=== PATIENT | female | born 1980 ===

== ENCOUNTER 2021-12-04 02:28 | Inpatient (IN) | payer SELFPAY ==
[2021-12-04] MEDS ORDERED: ACETAMINOPHEN 325 MG TAB PO PRN (03:44)
[2021-12-04] MEDS ORDERED: CARBOPROST TROMETHAMINE 250 MCG/1 ML INJ IM PRN (03:44)
[2021-12-04] MEDS ORDERED: BUTORPHANOL 2 MG/1 ML INJ IV PRN (03:44)
[2021-12-04] MEDS ORDERED: NalbUPHINE 10 MG/1 ML INJ IV PRN (03:44)
[2021-12-04] MEDS ORDERED: TERBUTALINE 1 MG/1 ML INJ SUB-Q PRN (03:44)
[2021-12-04] MEDS ORDERED: ePHEDrine SULFATE 50 MG/1 ML INJ IV PRN (03:44)
[2021-12-04] MEDS ORDERED: METHYLERGONOVINE MALEATE 0.2 MG/ML VIAL IM PRN (03:44)
--- NOTE | 2021-12-04 03:44 | History and Physical Report ---
History of Present Illness Date of examination: 12/04/21 Date of admission: 12/04/2021 Chief complaint: Leakage of fluid, IOL for Term PROM History of present illness: 41 y/o at 39 weeks presents to OBT reporting LOF. No VB. CTX started after LOF. Good FM. ROM Plus ordered. OBT RN reports gross ROM. Cervix is closed. The patient is admitted to L&D for IOL secondary to Term PROM. Past History Past Medical History: no pertinent history Past Surgical History: no surgical history Family/Genetic History: none Social history: no significant social history - Obstetrical History Expected Date of Delivery: 12/11/21 Actual Gestation: 39 Week(s) 0 Day(s) : 1 Para: 0 Medications and Allergies Allergies Allergy/AdvReac Type Severity Reaction Status Date / Time No Known Allergies Allergy Unverified 12/04/21 02:35 Review of Systems All systems: negative - Vital Signs Vital signs: Vital Signs Pulse Pulse Ox 72 99 12/04/21 02:32 12/04/21 02:32 Temp Pulse Resp BP Pulse Ox 59 L 134/72 98 12/04/21 03:17 12/04/21 02:33 12/04/21 03:17 - Physical Exam Breasts: Positive: normal Cardiovascular: Regular rate Lungs: Positive: Clear to auscultation, Normal air movement Abdomen: Positive: normal appearance Genitourinary (Female): Positive: normal external genitalia, normal perenium Vulva: both: normal Vagina: Positive: normal moisture Uterus: Positive: enlarged Adnexa: both: normal Anus/Rectum: Positive: normal perianal skin Extremities: Positive: normal Deep Tendon Reflex Grade: Normal +2 - Obstetrical FHR: category 1 Cervical Dilatation: 0 Cervical Effacement Percentage: 50 station: -3 Uterine Contraction Pattern: Irregular Results ROM Plus= ordered. Ultrasound: pending Assessment and Plan - Patient Problems (1) 39 weeks gestation of Current Visit: Yes Status: Acute Plan to address problem: care is up-to-date at [facility]. Obtain records during day shift. GBS status is unknown at this time. No risk factors for GBS at this time. If risk factors present, then tx with PCN per 2010 CDC MMWR guidelines. (2) Full-term PROM with onset of labor within 24 hours of rupture Current Visit: Yes Status: Acute Plan to address problem: ROM Plus is ordered and pending. OB US Limited is pending. Plan is IOL secondary to Term PROM. (3) Encounter for induction of labor Current Visit: Yes Status: Acute Plan to address problem: Ripen cervix with Cytotec 50 mcg PO. When cervix is favorable, then switch to Pitocin.
[2021-12-04] MEDS ORDERED: LACTATED RINGERS 1,000 ML IV SCH (03:45)
--- NOTE | 2021-12-04 04:44 | Ultrasound Report ---
US OB LIMITED INDICATION / CLINICAL INFORMATION: Loss of fluid. COMPARISON: None available. FINDINGS: There is a single intrauterine with an estimated sonographic gestational age of 38 weeks 3 days and an EDC of 12/15/21. Clinical dates are 39 weeks. The estimated weight is 3402 +/- 503 g. The heart rate is 124 bpm. presentation is cephalic. Amniotic fluid volume is normal w ith an PETRA of 10.2 cm. The placenta is located in the fundus, is grade 1 and is free of the os. There is no evidence of abruption. The uterine cervix was not evaluated. IMPRESSION: No significant abnormality is identified. Normal PETRA of 10.2 cm. Signer Name: Moshe Reyes MD Signed: 12/04/2021 4:40 AM Workstation Name: [id number]
[2021-12-04] MEDS: miSOPROStol 25 MCG TAB PO SCH ×2 (05:55→10:46)
[2021-12-04 05:56] LABS: Hematocrit 33.2 % (30.3-42.9); Hemoglobin 11.1 gm/dl (10.1-14.3); Mean Corpuscular HGB Conc 34 % (30-34); Mean Corpuscular Volume 90 fl (79-97); Red Blood Count 3.69 M/mm3 (3.65-5.03); Red Cell Distribution Width 13.8 % (13.2-15.2)
[2021-12-04 06:07] LABS: Platelet Count 80 K/mm3 (140-440)
[2021-12-04] MEDS ORDERED: fentaNYL 100 MCG/2 ML INJ ONE (09:30)
[2021-12-04] MEDS ORDERED: SODIUM CHLORIDE 0.9% 500 ML 500 ML IV SCH (09:40)
[2021-12-04] MEDS ORDERED: MINERAL OIL 30 ML ORAL LIQD ONE (09:57)
[2021-12-04] MEDS ORDERED: fentaNYL 100 MCG/2 ML INJ IV SCH (10:00)
[2021-12-04] MEDS ORDERED: fentaNYL 250 MCG/5 ML INJ IV SCH (10:00)
[2021-12-04] MEDS ORDERED: LIDOCAINE MPF (2%) 20 MG/1 ML VIAL 5 ML ONE (10:34)
[2021-12-04] MEDS ORDERED: LANOLIN/ZINC/DIMETHICONE (LANSINOH) 7 GM TP PRN (11:05)
[2021-12-04] MEDS ORDERED: ONDANSETRON 4 MG/2 ML INJ IV PRN (11:05)
[2021-12-04] MEDS ORDERED: diphenhydrAMINE 25 MG CAP PO PRN (11:05)
[2021-12-04] MEDS ORDERED: WITCH HAZEL/ GLYCERIN PAD TP PRN (11:05)
--- NOTE | 2021-12-04 11:20 | Procedure Note ---
OB Delivery Note - Delivery Date of Delivery: 12/04/21 (1029) Surgeon: JOHN MARQUIS Estimated blood loss: 200cc - Vaginal Delivery presentation: vertex Delivery position: OA Intrapartum events: none Delivery induction: misoprostol Delivery monitor: external FHT, external uterine Route of delivery: Delivery placenta: spontaneous Delivery cord: nuchal cord (X2), 3 umbilical vessels Episiotomy: none Delivery laceration: 2nd degree Delivery repair: vicryl Anesthesia: local Delivery comments: of a live 7'8 female over a 2nd degree perineal laceration under IV Pain Control with Apgars of 8 and 9 at 1029 on 12/04/2021. Tight Nuchal cord x 2 manually reduced on the perineum prior to delivery of the anterior shoulder. Infant directly to maternal abd/chest, skin to skin contact. Spontaneous delivery of placenta complete and intact with Hutson side presenting at 1035. Fundus is firm and midline located 5 below the U. Lochia is scant. 2nd degree perineal laceration and 1st degree right labial laceration repaired with 2-[address]-1 under local 2% Lidocaine. Delayed cord clamping and cutting; Cord cut by the Father of the Baby. Cord blood collected; placenta discarded. - A at 1 minute: 8 at 5 minutes: 9 Infant Gender: Female (7'8)
[2021-12-04] MEDS: HYDROcodone/ACETAMINOPHEN 5-325 MG TAB PO PRN ×2 (12:46→18:31)
[2021-12-05] MEDS: HYDROcodone/ACETAMINOPHEN 5-325 MG TAB PO PRN ×4 (00:19→20:10)
[2021-12-05 00:22] LABS: Hematocrit 34.5 % (30.3-42.9); Hemoglobin 11.8 gm/dl (10.1-14.3); Mean Corpuscular HGB Conc 34 % (30-34); Mean Corpuscular Volume 90 fl (79-97); Platelet Count 144 K/mm3 (140-440); Red Blood Count 3.85 M/mm3 (3.65-5.03); Red Cell Distribution Width 14.2 % (13.2-15.2)
--- NOTE | 2021-12-05 10:21 | Progress Note ---
Assessment and Plan A: day 1 S/P . Leukocytosis. Rash/petechiae most likely from pushing during . Hearing loss. P: Repeat CBC with diff and do urinalysis. Informed patient of possible etiology of rash/petechiae, possibly from pushing during . Patient requests to see someone about hearing loss. Consulted with Dr. Chase re: this. Dr. Chase recommends hospitalist consult. Order put in. Patient has Benadryl ordered also. Subjective - Subjective Date of service: 12/05/21 Principal diagnosis: day 1 S/P Interval history: Patient reports not being able to hear well in both ears, muffled sound, no ri nging, no drainage or ear pain. Denies dizziness, nasal congestion or sore throat. Reports rash on face and neck, no itching. Denies fever or chills. Patient reports: appetite normal, voiding normally, pain well controlled, flatus, ambulating normally, no dizzy ambulation, no bowel movement, no nauseated : doing well Objective - Vital Signs Latest vital signs: Vital Signs Temp Pulse Resp BP BP Pulse Ox Pulse Ox 12/05/21 08:55 100 12/05/21 07:52 61 20 102/59 95 12/05/21 00:25 98.0 F 58 L 18 112/56 97 12/04/21 21:01 97.3 F L 60 18 113/61 98 12/04/21 20:00 100 12/04/21 15:38 98.2 F 58 L 18 96/51 96 12/04/21 12:15 97 12/04/21 12:13 98.4 F 58 L 22 102/50 97 12/04/21 11:48 63 98/53 12/04/21 10:48 88 111/55 Intake and Output 12/04/21 12/05/21 12/05/21 23:59 07:59 15:59 Intake Total 1440 360 Output Total 1750 200 Balance -310 160 Intake: Oral 480 360 Intake, Free Water 960 Output: Urine 1750 200 Void 1750 200 Other: Total, Intake Amount 120 120 Total, Output Amount 400 200 # Voids Void 1 1 - Exam Narrative Exam: Petechiae/rash noted on neck. Cardiovascular: Present: Regular rate Lungs: Present: Clear to auscultation Abdomen: Present: normal appearance, soft, normal bowel sounds. Absent: distention, tenderness, guarding, rigidity Uterus: Present: normal, firm, fundal height below umbilicus (fundus firm and midline at 1 FB below umbilicus). Absent: bogginess, tenderness Extremities: Absent: tenderness, edema - Labs Labs: Abnormal lab results 12/04/21 12/04/21 Range/Units 05:30 23:07 WBC 17.1 H (4.5-11.0) K/mm3 Crossmatch See Detail
[2021-12-05 12:26] LABS: Bilirubin,Urine NEG (Negative); Blood,Urine LG (Negative); Color,Urine Yellow (Yellow); Mucus,Urine FEW /HPF; Protein,Urine <15 mg/dL mg/dL (Negative); Urobilinogen,Urine < 2.0 mg/dL (<2.0)
[2021-12-05 18:04] LABS: Basophils # (Auto) 0.1 K/mm3 (0.0-0.1); Basophils % (Auto) 0.4 % (0.0-1.8); Eosinophils # (Auto) 0.2 K/mm3 (0.0-0.4); Eosinophils % (Auto) 1.2 % (0.0-4.3); Hematocrit 33.1 % (30.3-42.9); Hemoglobin 11.4 gm/dl (10.1-14.3); Lymphocytes # (Auto) 1.5 K/mm3 (1.2-5.4); Mean Corpuscular HGB Conc 35 % (30-34); Mean Corpuscular Volume 89 fl (79-97); Monocytes # (Auto) 0.9 K/mm3 (0.0-0.8); Monocytes % (Auto) 6.6 % (0.0-7.3); Platelet Count 156 K/mm3 (140-440); Red Blood Count 3.72 M/mm3 (3.65-5.03); Red Cell Distribution Width 14.1 % (13.2-15.2)
[2021-12-06] MEDS: HYDROcodone/ACETAMINOPHEN 5-325 MG TAB PO PRN (02:12)
--- NOTE | 2021-12-06 05:57 | Consultation ---
History of Present Illness - Reason for Consult Consult date: 12/05/21 Medical management Requesting physician: AMAN RAMIREZ - History of Present Illness History of present illness: 41 y/o at 39 weeks presents to OBT reporting LOF. No VB. CTX started after LOF. Good FM. ROM Plus ordered. OBT RN reports gross ROM. Cervix is closed. The patient is admitted to L&D for IOL secondary to Term PROM. Past History Past Medical History: no pertinent history Past Surgical History: no surgical history Family/Genetic History: none Social history: no significant social history - Obstetrical History Expected Date of Delivery: 12/11/21 Actual Gestation: 39 Week(s) 0 Day(s) : 1 Para: 0 Medications and Allergies Allergies Allergy/AdvReac Type Severity Reaction Status Date / Time No Known Allergies Allergy Unverified 12/04/21 02:35 Review of Systems All systems: negative Past History Social history: no significant social history Medications and Allergies Allergies Allergy/AdvReac Type Severity Reaction Status Date / Time No Known Allergies Allergy Verified 12/04/21 22:22 Home Medications Medication Instructions Recorded Confirmed Last Taken Type Benzocaine/Menthol [Dermoplast] 1 spray TP QID PRN #1 can 12/06/21 Unknown Rx Ibuprofen [Motrin] 800 mg PO Q8HR PRN #20 tablet 12/06/21 Unknown Rx Active Meds: Active Medications Hydrocodone Bitart/Acetaminophen (Hydrocodone/Acetaminophen 5-325 Mg Tab) 2 each PO Q6H PRN PRN Reason: Pain, Moderate (4-6) Last Admin: 12/06/21 02:12 Dose: 2 each Bisacodyl (Bisacodyl 10 Mg Rect Supp) 10 mg OH BID PRN PRN Reason: Constipation Diphenhydramine HCl (Diphenhydramine 25 Mg Cap) 25 mg PO Q6H PRN PRN Reason: Itching Multi-Ingredient Ointment (Lanolin/Zinc/Dimethicone (Lansinoh) 7 Gm) 1 applic TP PRN PRN PRN Reason: Sore Nipples Ondansetron HCl (Ondansetron 4 Mg/2 Ml Inj) 4 mg IV Q8H PRN PRN Reason: Nausea And Vomiting Witch Marizol/Glycerin (Witch Marizol/ Glycerin Pad) 1 each TP PRN PRN PRN Reason: Hemorrhoid/cleansing/soothing Last Admin: 12/05/21 20:10 Dose: 1 each Exam - Constitutional Vitals: Temp Pulse Resp BP Pulse Ox 98.5 F 62 16 112/61 99 12/06/21 01:36 12/06/21 01:36 12/06/21 01:36 12/06/21 01:36 12/06/21 01:36 General appearance: Present: no acute distress, well-nourished - EENT Eyes: Present: PERRL ENT: hearing intact, clear oral mucosa - Neck Neck: Present: supple, normal ROM - Respiratory Respiratory effort: normal Respiratory: bilateral: CTA - Cardiovascular Heart rate: 78 Rhythm: regular Heart Sounds: Present: S1 & S2. Absent: rub, click - Extremities Extremities: pulses symmetrical, No edema Peripheral Pulses: within normal limits - Abdominal General gastrointestinal: Present: soft, non-tender, non-distended, normal bowel sounds Female genitourinary: Present: normal - Integumentary Integumentary: Present: clear, warm, dry - Musculoskeletal Musculoskeletal: gait normal, strength equal bilaterally - Psychiatric Psychiatric: appropriate mood/affect, intact judgment & insight - Neurologic Neurologic: CNII-XII intact, moves all extremities Results - Labs CBC & Chem 7: 12/05/21 17:38 Labs: Abnormal lab results 12/05/21 12/05/21 Range/Units 10:00 17:38 WBC 13.3 H (4.5-11.0) K/mm3 MCHC 35 H (30-34) % Lymph % (Auto) 11.0 L (13.4-35.0) % [place] # (Auto) 0.9 H (0.0-0.8) K/mm3 Seg Neutrophils % 80.8 H (40.0-70.0) % Seg Neutrophils # 10.8 H (1.8-7.7) K/mm3 Urine WBC (Auto) 17.0 H (0.0-6.0) /HPF Assessment and Plan - Patient Problems (1) URI (upper respiratory infection) Status: Acute Qualifiers: URI type: acute nasopharyngitis (common cold) Qualified Code(s): J00 - Acute nasopharyngitis [common cold] Plan to address problem: Steam inhalation Mild symptoms Possible eustachian tube blockage causing intermittent decreased hearing which should resolve spontaneously (2) Petechial rash Status: Acute
--- NOTE | 2021-12-06 07:04 | Progress Note ---
Assessment and Plan A: day 2 S/P . Leukocytosis resolving. P: Dr. Chase states to discharge patient home today. Discussed with patient discharge instructions and warning signs. Advised patient to continue taking her vitamin daily. Advised patient to avoid intercourse, lifting, housework. Advised patient to follow up at [facility] in 6 weeks. Patient voiced understanding of all instructions. Rx for Motrin and Dermoplast spray. Subjective - Subjective Date of service: 12/06/21 Principal diagnosis: day 2 S/P Interval history: Patient states her rash has resolved. States she is able to hear better today. Patient reports small amount of lochia. Urine C&S pending. Patient reports: appetite normal, voiding normally, pain well controlled, fl atus, ambulating normally, no dizzy ambulation, no nauseated : doing well Objective - Vital Signs Latest vital signs: Vital Signs Temp Pulse Resp BP BP Pulse Ox Pulse Ox 12/06/21 01:36 98.5 F 62 16 112/61 99 12/05/21 20:05 100 12/05/21 19:11 98/61 12/05/21 16:50 98.6 F 68 87/50 12/05/21 12:13 97.5 F L 70 116/54 12/05/21 08:55 100 12/05/21 07:52 61 20 102/59 95 Intake and Output 12/05/21 12/05/21 12/06/21 15:59 23:59 07:59 Intake Total 480 120 Balance 480 120 Intake: Intake, Free Water 480 120 Other: # Voids Void 3 1 - Exam Narrative Exam: Perineal skin well approximated; no swelling or bruising. Small amount of lochia rubra on pad. Cardiovascular: Present: Regular rate Lungs: Present: Clear to auscultation Abdomen: Present: normal appearance, soft, normal bowel sounds. Absent: distention, tenderness, guarding, rigidity Uterus: Present: normal, firm, fundal height below umbilicus (fundus firm and midline at 2 FB below umbilicus). Absent: bogginess, tenderness Extremities: Absent: tenderness, edema - Labs Labs: Abnormal lab results 12/05/21 12/05/21 Range/Units 10:00 17:38 WBC 13.3 H (4.5-11.0) K/mm3 MCHC 35 H (30-34) % Lymph % (Auto) 11.0 L (13.4-35.0) % [place] # (Auto) 0.9 H (0.0-0.8) K/mm3 Seg Neutrophils % 80.8 H (40.0-70.0) % Seg Neutrophils # 10.8 H (1.8-7.7) K/mm3 Urine WBC (Auto) 17.0 H (0.0-6.0) /HPF
--- NOTE | 2021-12-06 07:12 | Discharge Summary ---
Providers - Providers Date of Admission: 12/04/21 03:44 Date of discharge: 12/06/21 Attending physician: JASIEL NY MD 12/05/21 10:45 Consult to Physician [CONS] Routine Comment: Consulting Provider: GODFREY JAMES Physician Instructions: Reason For Exam: hearing loss Primary care physician: JASIEL NY MD Hospitalization Reason for admission: induction of labor, rupture of membranes Delivery: Laceration: 2nd degree Other procedures: none complications: none Discharge diagnosis: IUP at term delivered baby: female Pertinent studies: Labs Hospital course: Stable hospital course Condition at discharge: Good Disposition: 01 HOME / SELF CARE / HOMELESS - Discharge Diagnoses (1) Term delivered Status: Acute Plan - Discharge Medications Prescriptions: Benzocaine/Menthol [Dermoplast] 1 spray TP QID PRN #1 can PRN Reason: Pain, Mild (1-3) Ibuprofen [Motrin] 800 mg PO Q8HR PRN #20 tablet PRN Reason: Pain, Moderate (4-6) - Provider Discharge Summary Activity: routine, no sex for 6 weeks, no heavy lifting 4 weeks, no strenuous exercise Diet: routine Instructions: routine Additional instructions: Continue taking your vitamin at home. Follow up at [facility] in 6 weeks. Will call with urine culture results when available. Call your doctor immediately for: * Fever > 100.5 * Heavy vaginal bleeding ( >1 pad per hour) * Severe persistent headache * Shortness of breath * Reddened, hot, painful area to leg or breast - Follow up plan Follow up: PRIMARY CARE, [Referring] - 6 Weeks
[2021-12-06 08:30] VITALS: BP 98/63
== END 2021-12-06 08:56 | disposition home or self-care (01) | DRG 806 ==
LOC: TRG 02:28 → APU 02:30 → LD 03:44 → TRG 03:44 → LD 06:38 → OB 12:16
PROVIDERS: ADMIT Obstetrics & Gynecology Gynecology; ATTEND Obstetrics & Gynecology Gynecology
PROC: 10E0XZZ Delivery of Products of Conception, External Approach (ICD-10-PCS; principal; 2021-12-04)
PROC: 3E0P7VZ Introduction of Hormone into Female Reproductive, Via Natural or Artificial Opening (ICD-10-PCS; 2021-12-04)
PROC: 0KQM0ZZ Repair Perineum Muscle, Open Approach (ICD-10-PCS; 2021-12-04)
DX: O69.81X0 Labor and delivery complicated by cord around neck, without compression, not applicable or unspecified (principal); O99.13 Other diseases of the blood and blood-forming organs and certain disorders involving the immune mechanism complicating the puerperium; Z37.0 Single live birth; Z3A.39 39 weeks gestation of pregnancy; Z20.822 Contact with and (suspected) exposure to COVID-19; D72.829 Elevated white blood cell count, unspecified; O70.1 Second degree perineal laceration during delivery
CPT/HCPCS: 36415; 59025; 76816; 81001; 85025; 85027; 86850; 86900; 86901; 86920; 87086; 99211; G0378; J3490; G0463; J3010; U0003